=== PATIENT | female | born 1955 | race Caucasian/White ===

== ENCOUNTER 2016-05-20 12:48 | Emergency (ER) | payer OTHER ==
[~2016-05-20 12:48] MED LIST: ALBUTEROL0.09 MG/A1 INH; CIPRO 500MG TA500 MG PO; PREDNISONE 20MG20 MG PO; REGLAN10 MG PO; RELAFEN 750MG750 MG PO; REMICADE I100 MG/10 IV; TESSALON PERLE100 MG PO; VICODIN5-300 PO; ZITHROMAX Z-PA250 M1 PO
--- NOTE | 2016-05-20 13:02 | ED GENERAL ADULT ---
History of Present Illness General Chief Complaint: General Adult Stated Complaint: PER PT NEED A BREATHING TREATMENT Source: patient, old records Exam Limitations: no limitations Allergies Coded Allergies: Penicillins (Severe, RESPIRATORY 06/03/15) Sulfa (Sulfonamide Antibiotics) (Severe, SEVERE RASH 06/03/15) doxycycline (Mild, RASH 06/03/15) heparin (Severe, BLEEDING 06/03/15) ketorolac (Severe, BLEEDING 06/03/15) Reconcile Medications Albuterol Sulfate (Albuterol Sulfate Hfa) 90 MCG HFA.AER.AD 2-4 PUFF INH Q4-6 PRN PRN SHORTNESS OF BREATH 90 MCG PER PUFF Albuterol Sulfate 2.5 MG/3 ML (0.083 %) VIAL.NEB 1 Vial INH/SHANKAR Q4P PRN sob Azithromycin (Zithromax Z-Leonardo) 250 MG CAP 1 CAP PO DAILY bronchitis Azithromycin (Zithromax) 250 MG TABLET 1 DP PO AD BRONCHITIS 2 the first day followed by 1 for days 2-5 Benzonatate (Tessalon Perle) 100 MG CAPSULE 1 CAP PO TID PRN COUGH Benzonatate (Tessalon Perle) 100 MG CAPSULE 1 CAP PO TID PRN COUGH Ciprofloxacin (Cipro) 500 MG TABLET 1 TAB PO BID UTI HYDROCODONE/ACETAMINOPHEN (Hydrocodon-Acetaminophen 5-325) 5 MG-325 MG TABLET 1 TAB PO Q6HR PRN PAIN Hydrocodone/Chlorphen P-Stirex (Tussionex Pennkinetic Susp) 10 MG-8 MG/5 ML GUSTAVO.ER.12H 5 ML PO Q12 PRN COUGH Infliximab (Remicade Injection) 100 MG VIAL 600 MG IV EVERY 8 WEEKS ARTHRITIS (Reported) METOCLOPRAMIDE HCL (Reglan) 10 MG TAB 1 TAB PO TID PRN NAUSEA Nabumetone (Relafen 750MG) 750 MG TABLET 1 TAB PO BID ARTHRITIS (Reported) Prednisone 20 MG TABLET 1 TAB PO BID WHEEZING Triage Note: PER PT SAW DR CHO YESTERDAY, CHEST CONGESTION, CSN'T CATCH BREATH, INHALERS NOT WORKING. Triage Nurses Notes Reviewed? yes Onset: Gradual Duration: day(s): (3) Timing: recent history Injury Environment: home Severity: moderate Severity Numbers: 8 No Modifying Factors: none Associated Symptoms: cough HPI: Patient is a 60-year-old female with history of asthma presenting to the emergency department with chief complaint of dry barky cough that began getting worse over the past 3 days. She is trying to use her inhaler at home with little relief. She saw her primary care physician yesterday who started her on a Medrol Dosepak and gave her cough medication. She reports that helped slightly at night but symptoms worsened again today. Nothing seems to make it better or worse. Denies any fevers or chills. She does report malaise but reports that she was up most of the night coughing. Denies any nausea or vomiting. Positive sore throat. No sick contacts or recent travel. Denies abdominal pain or chest pain. No palpitations. (RADHAMES DURAN) Vital Signs & Intake/Output Vital Signs & Intake/Output Vital Signs Date Time Temp Pulse Resp B/P Pulse O2 O2 Flow FiO2 Ox Delivery Rate 05/20 1622 97.3 100 18 153/63 97 Room Air 05/20 1445 97 05/20 1320 97 05/20 1320 96 Room Air 05/20 1253 97.4 108 24 127/73 97 Room Air Past History Travel History Traveled to [place] past 21 day No Medical History Any Pertinent Medical History? see below for history Neurological: NONE EENT: NONE Cardiovascular: NONE Respiratory: NONE Gastrointestinal: NONE Hepatic: NONE Renal: RENAL STONES Musculoskeletal: psoariatic arthritis Endocrine: NONE Surgical History Surgical History: non-contributory Psychosocial History Who do you live with Spouse What is your primary language Malagasy Tobacco Use: Never used Family History Hx Contributory? No (RADHAMES DURAN) Review of Systems Review of Systems Constitutional: Reports: malaise. Comments Review of systems: See HPI, All other systems negative. Constitutional, no chills fever or weight loss HEENT: No visual changes Cardiovascular: No chest pain ,palpitation , orthopnea or ankle swelling Skin, no jaundice no rashes Respiratory: No sputum or hemoptysis GI: No nausea no vomiting : No dysuria No hematuria Muscle skeletal: no back pain, no neck pain, Neurologic: No numbness no confusion Psych: No stress anxiety or depression,. Heme/endocrine: No bruising no bleeding no polyuria or polydipsia Immunology: No splenectomy or history of AIDS (RADHAMES DURAN) Physical Exam Physical Exam General Appearance: well developed/nourished, no apparent distress, alert, awake , comfortable Comments: Well-developed well-nourished person in no acute distress HEENT: Normal EENT exam, extraocular motion intact, no nystagmus. Pupils equally round and reactive to light and accommodation. Nose is atraumatic. External auditory canal and Tympanic membranes clear, moderate congestion behind TM. No erythema.. Pharynx is mildly erythematous, no tonsillar enlargement, no exudates. No swelling or edema. Neck: Supple, no lymphadenopathy, normal range of motion without pain or tenderness Back: Nontender, no CVA tenderness. Full range of motion Cardiovascular: Regular rate and rhythms no murmurs rubs or gallops, normal JVP Respiratory: Chest nontender. No respiratory distress.breath sounds clear to auscultation Bilaterally. Dry reactive barky cough on exam. No stridor. Neuro: Alert oriented x3 Skin: No appreciable rash on exposed skin, skin is warm and dry. Psych: Mood and affect is normal, memory and judgment is normal. Core Measures ACS in differential dx? No CVA/TIA Diagnosis: No Severe Sepsis Present: No Septic Shock Present: No (SOPHIA RAMIREZ,RADHAMES) Progress Differential Diagnoses I considered the following diagnoses in my evaluation of the patient: Parainfluenza, upper respiratory infection, bronchitis, pneumonia, bronchospasm Diagnostic Imaging: Viewed by Me: Radiology Read. Discussed w/RAD: Radiology Read. Radiology Impression: PATIENT: OSCAR RUVALCABA PRESENT AGE: 60 PATIENT ACCOUNT NO: [id number] : 59 LOCATION: [facility] ORDERING PHYSICIAN: RADHAMES RAMIREZ SERVICE DATE: 05/20/16 EXAM TYPE: RAD - XRY-CHEST XRAY, PA AND LATERAL EXAMINATION: XR CHEST CLINICAL INFORMATION: 60-year-old female with cough. COMPARISON: Portable chest examination on 09/01/2014. TECHNIQUE: 2 views of the chest were obtained. FINDINGS: No significant abnormality is noted involving the heart, lungs, mediastinum, bony thorax or soft tissues. IMPRESSION: No pneumonia. DICTATED BY: CECILE HESS MD DATE/TIME DICTATED:05/20/161555 PSYCHIATRIC NURSE PRACTITIONER: POOJA DATE/TIME TRANSCRIBED:05/20/161555 Initial ED EKG: none Comments: On arrival patient noted he distress, she does have dry reactive cough throughout entire exam. Vitals within normal range. She does have slight erythema in the posterior pharynx. Likely related to cough. We will assess for strep throat with throat swab. Patient will be given a DuoNeb treatment, IV Solu-Medrol. Given another dose of Robitussin with codeine. We do not have Tussionex. Patient reports little to no relief with racemic epi treatment. She reports that it naik her throat like to stop. Unable complete treatment. 05/20/2016 3:09:09 PM patient informed of throat ulcer results. She'll be started on a Z-Leonardo, continue Medrol dosepak, given prescription for Tussionex and also given a prescription for nebulizer machine. She'll follow up with her primary care physician in the next 24-40 hours. Patient nontoxic. 05/20/2016 4:36:33 PM negative x-ray, negative flu. Patient will follow with PCP. (SOPHIA RAMIREZ,RADHAMES) Plan of Care: Orders Procedure Date/time Status RAPID VIRAL INFLUENZA A 05/20 1522 Active AEROSOL (GEN) 05/20 1445 Complete THROAT CULTURE W/QUICK STREP 05/20 1354 Active PEAK FLOW MEASUREMENT (GEN) 05/20 1323 Complete AEROSOL (GEN) 05/20 1323 Complete Current Medications Sig/El Start time Last Medication Dose Stop Time Status Admin Hydrocortisone 125 MG ONCE ONE 05/20 1315 CAN Sodium Succinate 05/20 1316 (Solucortef) Methylprednisolone 0 .STK-MED ONE 05/20 1307 CAN (Solu Medrol) Departure Departure Disposition: HOME OR SELF CARE Condition: Stable Clinical Impression Primary Impression: Bronchospasm Referrals: PATIENT HAS NO PRIMARY CARE DR Additional Instructions: Follow-up with Dr. Cho call to make an appointment. Take Z-Leonardo as prescribed. Take Tussionex as prescribed for cough. Continue Medrol dosepak. He was given a prescription for nebulizer treatment as well as nebulizer solution. Use that as directed. Return for worsening symptoms or concerns. Departure Forms: Customer Survey General Discharge Information Prescriptions: Current Visit Scripts Albuterol Sulfate 1 Vial INH/SHANKAR Q4P PRN sob #50 Vial Benzonatate (Tessalon Perle) 1 CAP PO TID PRN COUGH #30 CAP Azithromycin (Zithromax) 1 DP PO AD #6 TAB 2 the first day followed by 1 for days 2-5 Hydrocodone/Chlorphen P-Stirex (Tussionex Pennkinetic Susp) 5 ML PO Q12 PRN COUGH #125 ML (RADHAMES DURAN) PA/TRAUMA DIRECTOR Co-Sign Statement Statement: ED Attending supervision documentation- [X] I saw and evaluated the patient. I have also reviewed all the pertinent lab results and diagnostic results. I agree with the findings and the plan of care as documented in the PA's/TRAUMA DIRECTOR's documentation. [X] I have reviewed the ED Record and agree with the PA's/TRAUMA DIRECTOR's documentation. [] Additions or exceptions (if any) to the PAs/TRAUMA DIRECTOR's note and plan are summarized below: [] (KHURRAM HIGGINBOTHAM,WILLIS) Critical Care Note Critical Care Note Critical Care Time: non-applicable (RADHAMES DURAN)
[2016-05-20] MEDS ORDERED: ZITHROMAX250 M2 PO (14:10)
[2016-05-20] MEDS ORDERED: ALBUTEROL2.5 MG/3 M INH/SOL (14:10)
[2016-05-20] MEDS ORDERED: TESSALON PERLE100 M1 PO (14:10)
[2016-05-20] MEDS ORDERED: TUSSIONEX PENN115 ML PO ×2 (14:10→14:13)
--- NOTE | 2016-05-20 16:00 | RADIOLOGY REPORT ---
EXAMINATION: XR CHEST CLINICAL INFORMATION: 60-year-old female with cough. COMPARISON: Portable chest examination on 09/01/2014. TECHNIQUE: 2 views of the chest were obtained. FINDINGS: No significant abnormality is noted involving the heart, lungs, mediastinum, bony thorax or soft tissues. IMPRESSION: No pneumonia.
[2016-05-20 16:22] VITALS: BP 153/63
== END 2016-05-20 16:41 ==
LOC: ERH 12:48
DX: J98.01 Acute bronchospasm (principal)
CPT/HCPCS: 1263; 87804; 87804-59; 96374; 96375; J0456; J2930; J7060

== ENCOUNTER 2017-07-27 13:34 | Emergency (ER) | payer OTHER ==
[~2017-07-27] VITALS: Ht 157.5 cm; Wt 112.5 kg
[~2017-07-27 13:34] MED LIST changes: +ADVAIR 250-501 EACH INH; +ALBUTEROL2.5 MG/3 M INH/SOL; +ELIQUIS2.5 M1 PO; +MS CONTIN15 M2 PO; +NORCO 5-325 TA1 EACH PO; +STELARA90 MG/1 ML SQ; +TESSALON PERLE100 M1 PO; +TUSSIONEX PENN115 ML PO; +VALIUM10 M1 PO; +ZITHROMAX250 M2 PO
[2017-07-27 13:38] VITALS: BP 135/75
--- NOTE | 2017-07-27 14:24 | ED UPPER/LOWER EXTREMITY COMPL ---
History of Present Illness General Chief Complaint: Lower Extremity Problems Stated Complaint: RIGHT LOWER EXT. PROBLEM Source: patient Exam Limitations: no limitations Vital Signs & Intake/Output Vital Signs & Intake/Output Vital Signs Date Time Temp Pulse Resp B/P B/P Pulse O2 O2 Flow FiO2 Mean Ox Delivery Rate 07/27 1338 97.8 99 18 135/75 96 Room Air Allergies Coded Allergies: Penicillins (Severe, RESPIRATORY 06/03/15) Sulfa (Sulfonamide Antibiotics) (Severe, SEVERE RASH 06/03/15) sulfite (Severe, RASH/FACIAL SWELLING 12/23/16) doxycycline (Mild, RASH 06/03/15) heparin (Severe, BLEEDING 06/03/15) ketorolac (Severe, BLEEDING 06/03/15) Reconcile Medications Apixaban (Eliquis) 2.5 MG TABLET 2.5 MG PO BID DVT ppx Diazepam (Valium) 10 MG TABLET 5 MG PO Q8P PRN SPASMS Fluticasone/Salmeterol (Advair 250-50 Diskus) 250 MCG-50 MCG/DOSE BLST.W.DEV 1 PUF INH BID asthma (Reported) Hydrocodone/Acetaminophen ([place]land 5-325 Tablet) 5 MG-325 MG TABLET 1-2 TAB PO Q4-6 PRN PRN PAIN Ms Contin 15 MG TAB 15 MG PO BID PRN PAIN Ustekinumab (Stelara) 90 MG/ML SYRINGE 90 MG SQ EVERY 8 WEEK PSORIATIC ARTHRITIS (Reported) Triage Note: PT HAVING BLEEDING FROM VEIN IN RIGHT LOWER EXT. PRESSURE DSG TO RIGHT LOWER EXT. Triage Nurses Notes Reviewed? yes Onset: Abrupt Duration: hour(s):, constant, continues in ED, getting worse Severity: severe HPI: Patient presents for evaluation of a bleeding varicose vein of the right lower extremity. Patient states it began abruptly while she was in the shower this morning preparing for work. It seemed to settle down but then began bleeding again after she began working. She denies any known injury to the area. Past History Travel History Traveled to [place] past 21 day No Medical History Any Pertinent Medical History? 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 No Review of Systems Review of Systems Constitutional: Reports: no symptoms. EENTM: Reports: no symptoms. Respiratory: Reports: no symptoms. Cardiovascular: Reports: no symptoms. Gastrointestinal/Abdominal: Reports: no symptoms. Genitourinary: Reports: no symptoms. Musculoskeletal: Reports: no symptoms. Skin: Reports: see HPI. Neurological/Psychological: Reports: no symptoms. Hematologic/Endocrine: Reports: no symptoms. Immunological: Reports: no symptoms. All Other Systems: Reviewed and Negative Physical Exam Physical Exam General Appearance: SEE BELOW Comments: Gen.: Well-nourished, well-developed, no acute respiratory distress. Head: Normocephalic, atraumatic. Eyes: Normal inspection bilaterally Ears: Normal inspection bilaterally Nose: Normal inspection Throat/mouth : Moist mucosa Neck: Supple, full range of motion, no goiter Heart: Regular rate and rhythm Lungs: Quiet respirations Back: Normal range of motion Extremities: Right lower extremity: No active bleeding from a small defect in a varicose vein anteriorly. Neurologic: Cranial nerves grossly intact, speech is clear Skin: warm and dry Psychiatric: Calm, cooperative, no apparent delusions or hallucinations Progress Differential Diagnosis: bLEEDING VARICOSE VEIN, LACERATION, ABRASION, CONTUSION, GRANULOMA Plan of Care: F/U PMD PRN Comments: 07/27/2017 2:22:36 PM no further bleeding in the emergency department after skin glue repair of variceal bleeding site. Departure Departure Disposition: HOME OR SELF CARE Condition: Stable Clinical Impression Primary Impression: Bleeding from varicose veins of right lower extremity Referrals: Gonzalez HIGGINBOTHAM,Mauricio Rico (PCP/Family) Additional Instructions: Notify your primary care physician this emergency department visit and treatment plan. Return if any concerns or sudden worsening. Thank you for choosing the [facility] Emergency Department for your care. It was a pleasure to serve you today. Oscar Mackay M.D. [facility] Departure Forms: Customer Survey General Discharge Information Procedures Incision and Drainage Site: ANTERIOR RIGHT LEG Laceration/Wound Repair Progress: Varicose bleeding site repaired with skin glue
[2017-07-27] MEDS ORDERED: SINGULAIR10 M1 PO (14:30)
== END 2017-07-27 14:35 ==
LOC: ERH 13:34
DX: I83.899 Varicose veins of unspecified lower extremity with other complications (principal)